=== PATIENT | female | born 1980 | race Caucasian/White ===

== ENCOUNTER 2024-12-16 13:49 | Outpatient (CLI) | payer BC, OTHER, SELFPAY ==
--- NOTE | ~2024-12-16 | MM_ITS ---
EXAMINATION: MM screening owen BI w diane HISTORY: Screening TECHNIQUE: Craniocaudal and mediolateral oblique 3-D tomosynthesis images were obtained and synthetic 2-D images were generated. CAD analysis was submitted and interpreted. COMPARISON: No prior mammogram is available for comparison at this institution. BREAST PARENCHYMAL COMPOSITION: The breasts are extremely dense, which lowers the sensitivity of mammography. FINDINGS: There is no evidence of suspicious mass, calcification, or architectural distortion to suggest malignancy. IMPRESSION: 1. No mammographic evidence of malignancy. Recommend routine screening mammography in one year. BI-RADS Category 2: Benign finding(s) Reviewed, dictated and finalized at location Q. IMPRESSION: 1. No mammographic evidence of malignancy. Recommend routine screening mammogra phy in one year. BI-RADS Category 2: Benign finding(s)
--- OUTSIDE RECORDS SUMMARY | 2024-12-16 16:09 | XMS_ITS | Clinical Summary ---
Author Organization [address] lto Address [address] [place] [address] Care Team Providers Care Raspberry Checker Name Role Phone Lizet Maldonado MD Primary Care Provider + Allergies No known active allergies Medications albuterol HFA (PROVENTIL HFA,VENTOLIN HFA,PROAIR HFA) 90 mcg/actuation inhalerIndicatio ns:Lower respiratory infection Inhale 2 puffs every 4 (four) hours as needed for wheezing or shortness of breath (cough) 18 g 4 Active inhalational spacing device (Aerochamber MV) spacerIndication s:Lower respiratory infection Use with albuterol inhaler 1 each 4 Active Active Problems No known active problems Surgical History Surgery Date Site/Laterality Comments NO PAST SURGERIES Family History Medical History Relation Name Comments Cancer Father Alzheimer's disease Mother Relation Name Status Comments Father Mother Alive Social History Tobacco Use Types Packs/Day Years Used Date Smoking Tobacco: Never Smokeless Tobacco: Never Tobacco Cessation:Counseling Given: Not Answered Personal Safety Answer Date Recorded Getting School Help Needed Not on file 10/15 Comments Unknown Sex and Gender Information Value Date Recorded Sex Assigned at Not on file Legal Sex Female 7:41 PM [employer] Gender Identity Not on file Sexual Orientation Not on file Obstetrics History Last Filed Vital Signs Vital Sign Reading Time Taken Comments Blood Pressure 114/80 10/16/2023 9:43 AM CDT Pulse 67 10/16/2023 9:43 AM CDT Temperature 36.5 C (97.7 F) 10/16/2023 9:43 AM CDT Respiratory Rate 16 10/16/2023 9:43 AM CDT Oxygen Saturation 98% 10/16/2023 9:43 AM CDT Inhaled Oxygen Concentration - - Weight 60.8 kg (134 lb) 10/16/2023 9:43 AM CDT Height 175.3 cm (5' 9) 10/16/2023 9:43 AM CDT Body Mass Index 19.79 10/16/2023 9:43 AM CDT Plan of Treatment Health Maintenance Due Date Last Done Comments Breast Cancer Screening-Mammogram 1981 Cervical Cancer Screening 1981 Depression Screening 1981 Hepatitis C Screening 1981 DTaP/Tdap/Td Vaccine (1 - Tdap) 1992 Varicella Vaccines (1 of 2 - 13+ 2-dose series) 1994 Hepatitis B Screening 11/13/1999 Regular Well Visit/Exam 18-64 11/13/1999 HPV Vaccines (1 - 3-dose SCD M series) 2008 Influenza Vaccine (#1) 2024 Pneumococcal vaccine <65 Aged Out No longer eligible based on patient's age to complete this topic Insurance [employer] [facility] Care Teams Raspberry Checker Relationship Specialty Start Date End Date Lizet Maldonado MD PCP - General Family Medicine 12/14/19
== END 2024-12-16 13:50 | disposition home or self-care (01) ==
PROVIDERS: PCP Family Medicine; Visit Provider Family Medicine
DX: Z12.31 Encounter for screening mammogram for malignant neoplasm of breast (principal)
CPT/HCPCS: 77063; 77067